=== PATIENT | female | born 1990 | race Caucasian/White ===

== ENCOUNTER 2017-11-24 05:30 | Day surgery (SDC) | payer BC, MEDICAID ==
[2017-11-24] MEDS ORDERED: LACTATED RINGER'S 1,000 ML IV* (06:00)
[2017-11-24] MEDS ORDERED: CEFAZOLIN 2 GM/50 ML (PMX) 50 ML IVPB (06:00)
[2017-11-24] MEDS ORDERED: ROCURONIUM 50 MG INJ (07:22)
[2017-11-24] MEDS ORDERED: NEOSTIGMINE 3 MG/3 ML SYRINGE (07:22)
[2017-11-24] MEDS ORDERED: PROPOFOL 20 ML ×2 (07:22→08:32)
[2017-11-24] MEDS ORDERED: ONDANSETRON 4 MG INJ ×2 (07:23→08:52)
[2017-11-24] MEDS ORDERED: METOCLOPRAMIDE 10 MG INJ (07:23)
[2017-11-24] MEDS ORDERED: ROPIVACAINE 0.5 % 30 ML VIAL (07:23)
[2017-11-24] MEDS ORDERED: MIDAZOLAM 1 MG/ML 2 ML INJ (07:24)
[2017-11-24] MEDS ORDERED: CEFAZOLIN 1 GM INJ (07:46)
[2017-11-24] MEDS ORDERED: KETOROLAC 30 MG INJ (08:02)
[2017-11-24] MEDS: LIDOCAINE 1%/EPI 30 ML INJ (08:10)
[2017-11-24] MEDS ORDERED: HYDROmorphONE (0.2 MG/ML) 10ML SYG IV ×3 (08:30→08:51)
[2017-11-24] MEDS ORDERED: OXYCODONE/ACETAMINOPHEN (5/325) TAB PO ×2 (08:30)
[2017-11-24] MEDS ORDERED: DIPHENHYDRAMINE 50 MG INJ IV (08:30)
[2017-11-24] MEDS ORDERED: MEPERIDINE 25 MG INJ IV (08:30)
[2017-11-24] MEDS ORDERED: EPHEDrine SULFATE 50 MG/5 ML SYG IV (08:30)
[2017-11-24] MEDS: HYDROmorphONE (0.2 MG/ML) 10ML SYG IV (09:16)
[2017-11-24] MEDS: ONDANSETRON 4 MG INJ IV (09:16)
== END 2017-11-24 12:35 | disposition home or self-care (01) ==
LOC: SDS 05:30
DX: Z30.2 Encounter for sterilization (principal); E66.9 Obesity, unspecified; Z68.35 Body mass index [BMI] 35.0-35.9, adult
CPT/HCPCS: 58670; 84703